=== PATIENT | male | born 1970 | race Caucasian/White ===

== ENCOUNTER 2021-12-16 13:17 | Emergency (ER) | payer OTHER ==
[~2021-12-16] VITALS: Ht 167.6 cm; Wt 68.0 kg
[2021-12-16 13:50] VITALS: BP 148/108
--- NOTE | 2021-12-16 14:06 | NUR ---
Patient eloped from facility. ER aware.
== END 2021-12-16 14:17 | disposition left against medical advice (07) ==
LOC: ER 13:19
DX: Z53.21 Procedure and treatment not carried out due to patient leaving prior to being seen by health care provider (principal); F32.A Depression, unspecified; F41.9 Anxiety disorder, unspecified; Z59.00 Homelessness unspecified

== ENCOUNTER 2021-12-18 10:30 | Emergency (ER) | payer OTHER ==
[~2021-12-18] VITALS: Ht 167.6 cm; Wt 68.5 kg
--- NOTE | 2021-12-18 10:45 | NUR ---
francis from [facility] [place]. pt c/o r wrist pain, "dehydration" patient states "i fell last night", denies SI/HI. Kept comfortable, will continue to monitor and pulse ox. kept comfortable, will continue to monitor accordingly.
--- NOTE | 2021-12-18 10:54 | NUR ---
pt refusing blood draw. dr gabriel made aware.
[2021-12-18 11:00] VITALS: BP 145/88
--- NOTE | 2021-12-18 11:53 | NUR ---
Kavya cooper in [facility] - 12/18/21 at 1154 by RAGHU Patient discharged to home in stable condition. Written and verbal after care instructions given. Patient verbalizes understanding of instruction.
--- NOTE | 2021-12-18 11:54 | NUR ---
Patient eloped from facility. ER MD notified.
== END 2021-12-18 11:54 | disposition left against medical advice (07) ==
LOC: ER 10:32
DX: Z53.21 Procedure and treatment not carried out due to patient leaving prior to being seen by health care provider (principal)